=== PATIENT | male | born 1935 | race Caucasian/White ===

== ENCOUNTER 2018-04-28 13:12 | Emergency (ER) | payer BC, OTHER ==
[2018-04-28] MEDS ORDERED: AMOXICILLIN/CLAVULANATE POT 875/125 MG TAB PO ONE (13:42)
--- NOTE | 2018-04-28 13:42 | EDPHY ---
H & P Time Seen by Provider: 04/28/18 13:31 HPI/ROS: CHIEF COMPLAINT: Left-sided abdominal pain HISTORY OF PRESENT ILLNESS: Patient had his 1st episode of diverticulitis in 2007, he has had several since then. Today presents with left lower quadrant abdominal pain which is been present since yesterday. He says this feels identical and has always gotten better with oral Levaquin. Does not have associated vomiting or nausea or diarrhea or fevers. No recent injury or trauma. No urinary symptoms. Pain is a little bit worse with pushing on it but not worse with walking or oral intake. Mild at this time. REVIEW OF SYSTEMS: Eye: no change in vision ENT: no sore throat Cardiac: no chest pain or syncope Pulmonary: no cough or SOB Abdomen: HPI Musculoskeletal: no back pain Skin: no rash Neuro: no headache Constitutional: no fever : no urinary symptoms A comprehensive 10 point review of systems is otherwise negative aside from elements mentioned in the history of present illness. 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 Eyes: No scleral icterus. ENT, Mouth: Normal mucous membranes. Respiratory: Normal respiratory effort, breath sounds equal, lungs are clear to auscultation. Cardiovascular: Regular rate and rhythm. Gastrointestinal: Slight left lower quadrant tenderness but not distended. No hernia. Normal male . Or guarding. Normal bowel sounds. Neurological: Alert, face symmetric, normal motor and sensory in extremities. Skin: Warm and dry, no rashes. Musculoskeletal: No peripheral edema. Psychiatric: Not agitated. Emergency Department course/MDM: Discussed imaging with the patient which he declines. He would prefer just be treated for diverticulitis because symptoms are mild and feels identical to previous episodes. He clearly has capacity to make decisions regarding his care. He states he understands the risks of delay in diagnosis of alternative problems, or micro perforation or abscess, including but not limited to disability and . He states he has or risks is willing to take and would prefer not to have imaging or lab done today. Prescription for Levaquin and Augmentin (not Flagyl) as he says that he is not willing to stop drinking wine during the duration of oral antibiotic therapy. EKG performed , av paced rhythm, low concern for QT problem. Smoking Status: Never smoked Constitutional: Initial Vital Signs Temperature (C) 36.7 C 04/28/18 13:18 Heart Rate 75 04/28/18 13:18 Respiratory Rate 18 04/28/18 13:18 Blood Pressure 124/81 H 04/28/18 13:18 O2 Sat (%) 96 04/28/18 13:18 O2 Delivery Mode Room Air Allergies/Adverse Reactions: No Known Allergies Allergy (Unverified 03/04/11 11:51) Home Medications: Medication Instructions Recorded CITALOPRAM HYDROBROMIDE [Celexa] 10 mg PO 05/11/11 TEMAZEPAM 15 mg PO 05/11/11 AZITHROMYCIN [Z-PACK] 250 mg PO DAILY #4 packet 05/18/14 Aspirin 81mg (OTC) 05/18/14 Lisinopril [Zestril 2.5 mg (*)] 05/18/14 Amoxicillin/Clavulanate Pot 875 mg PO BID #20 tab 04/28/18 [Augmentin 875 mg tab] levOFLOXACIN [Levaquin] 750 mg PO DAILY #7 tab 04/28/18 Medical Decision Making - Diagnostics EKG Interpretation: 12-lead EKG interpreted by me; official reading is in trace master. My interpretation is av pacing rate 87. Differential Diagnosis: Differential considered including but not limited to diverticulitis, UTI, renal colic, bowel obstruction, abscess, perforation. - Data Points Medications Given: Discontinued Medications Amoxicillin/Clavulanate Potassium (Augmentin 875mg) 875 mg PO EDNOW ONE PRN Reason: Protocol Stop: 04/28/18 13:43 Last Admin: 04/28/18 13:56 Dose: 875 mg Levofloxacin (Levaquin) 750 mg PO EDNOW ONE PRN Reason: Protocol Stop: 04/28/18 13:43 Last Admin: 04/28/18 13:56 Dose: 750 mg Departure - Departure Disposition: Home, Routine, Self-Care Clinical Impression: Abdominal pain Qualifiers: Abdominal location: left lower quadrant Qualified Code(s): R10.32 - Left lower quadrant pain Condition: Good Instructions: Amoxicillin/Clavulanate Potassium (By mouth), Levofloxacin (By mouth) Additional Instructions: Continue to drink plenty of fluids, high-fiber diet. Return to the ER if you get fever or worsening pain or vomiting. Please follow-up with your doctor this week in on Monday in 48 hr if not 100% improved. Referrals: Timoteo Morrell MD [Primary Care Provider] - 2-3 days, if not improved Prescriptions: Amoxicillin/Clavulanate Pot [Augmentin 875 mg tab] 875 mg PO BID #20 tab levOFLOXACIN [Levaquin] 750 mg PO DAILY #7 tab
--- NOTE | 2018-04-28 13:54 | CPEKG ---
Heart Rate: 87 RR Interval: 690 P-R Interval: 140 QRSD Interval: 134 QT Interval: 400 QTC Interval: 482 P [place]: 241 QRS [place]: 267 T Wave [place]: 87 EKG Severity - ABNORMAL ECG - EKG Impression: ATRIAL-VENTRICULAR DUAL-PACED RHYTHM Electronically Signed By: Scott Walsh 28-Apr-2018 14:17:33
[2018-04-28 14:11] VITALS: BP 134/80
== END 2018-04-28 14:11 | disposition home or self-care (01) ==
DX: R10.32 Left lower quadrant pain (principal); Z79.82 Long term (current) use of aspirin; Z95.0 Presence of cardiac pacemaker